=== PATIENT | male | born 1960 | race Caucasian/White ===

== ENCOUNTER → 2017-10-19 | Outpatient (CLI) | payer OTHER | LOC: BMCIMAGING 14:08 | PROVIDERS: ATTEND Internal Medicine | DX: N50.89 Other specified disorders of the male genital organs (principal) ==

== ENCOUNTER → 2018-06-03 | Outpatient (CLI) | payer OTHER | LOC: BMCIMAGING 11:04 | PROVIDERS: ATTEND Internal Medicine | DX: M79.674 Pain in right toe(s) (principal) ==